=== PATIENT | female | born 1985 | race Caucasian/White ===

== ENCOUNTER 2017-09-16 16:46 | Emergency (ER) | payer BC ==
[2017-09-16 16:58] VITALS: BP 129/74
[2017-09-16] MEDS ORDERED: BSS OPTH.SOL* BTL OPHTHALMIC ONE (17:03)
[2017-09-16] MEDS ORDERED: Tetracaine 0.5% OPTH.SOL 4 ML* 1 DROP BTL LEFT EYE ONE (17:03)
[2017-09-16] MEDS ORDERED: Fluorescein Sod TOPICAL 0.6* 0.6 MG TEST OPHTHALMIC ONE (17:03)
--- NOTE | 2017-09-16 17:06 | UC ---
Eye Complaint HPI - HPI Summary HPI Summary: Patient was walking outside and had a peice of "something" blow into her eye. tried to flush it, but cannot open it now. - History of Current Complaint Chief Complaint: UCEye Stated Complaint: EYE COMPLAINT Time Seen by Provider: 09/16/17 17:03 Hx Obtained From: Patient Hx Last Menstrual Period: 09/14/17 ?: No Onset/Duration: Sudden Onset, Lasting Hours Timing: Constant Severity Initially: Severe Severity Currently: Severe Pain Intensity: 7 Location of Injury: Conjunctiva, Eye Lid (lower), Eye Lid (upper), Sclera Character: Foreign Body Sensation Associated Signs And Symptoms: Positive: Photophobia, Drainage (Clear) - Allergies/Home Medications Allergies/Adverse Reactions: Allergies Allergy/AdvReac Type Severity Reaction Status Date / Time Penicillins Allergy Intermediate Rash Verified 09/16/17 16:58 Sulfa (Sulfonamide Allergy Intermediate Rash Verified 09/16/17 16:58 Antibiotics) Home Medications: Home Medications Melatonin 1 mg PO DAILY WITH MEAL 09/16/17 [History Confirmed 09/16/17] PMH/Surg Hx/FS Hx/Imm Hx Previously Healthy: Yes - Surgical History Surgical History: None Surgery Procedure, Year, and Place: denies - Family History Known Family History: Positive: None Negative: Cardiac Disease, Hypertension - Social History Alcohol Use: Rare Substance Use Type: None Smoking Status (MU): Never Smoked Tobacco - Immunization History Most Recent Influenza Vaccination: 01/2015 Most Recent Tetanus Shot: 03/30/15 Most Recent Pneumonia Vaccination: unsure Review of Systems Constitutional: Negative Skin: Negative Eyes: Drainage, Eye Redness, Photophobia ENT: Negative Respiratory: Negative Cardiovascular: Negative Gastrointestinal: Negative Genitourinary: Negative Motor: Negative Neurovascular: Negative Musculoskeletal: Negative Neurological: Negative Psychological: Negative Is Patient Immunocompromised?: No All Other Systems Reviewed And Are Negative: Yes Physical Exam Triage Information Reviewed: Yes Appearance: Well-Appearing, Well-Nourished, Pain Distress Vital Signs: Initial Vital Signs Temp 99.3 F 09/16/17 16:52 Pulse 95 09/16/17 16:52 Resp 18 09/16/17 16:52 BP 129/74 09/16/17 16:52 Pulse Ox 100 09/16/17 16:52 Vital Signs Reviewed: Yes Eyes: Positive: Conjunctiva Inflamed, Discharge, Other: - multiple abrasions on cornea. no FB notes ENT Exam: Normal Dental Exam: Normal Neck exam: Normal Respiratory Exam: Normal Respiratory: Positive: Chest non-tender, Lungs clear, Normal breath sounds Cardiovascular Exam: Normal Cardiovascular: Positive: RRR, No Murmur, Pulses Normal Abdominal Exam: Normal Abdomen Description: Positive: Nontender, No Organomegaly, Soft Bowel Sounds: Positive: Present Musculoskeletal Exam: Normal Neurological Exam: Normal Psychological Exam: Normal Skin Exam: Normal Eye Complaint Course/Dx - Course Course Of Treatment: hx obtained, exam performed, meds reviewed, eye exam completed. - Differential Dx/Diagnosis Differential Diagnosis/HQI/PQRI: Conjunctivitis, Corneal Abrasion, Foreign Body , Penetrating Injury Provider Diagnoses: corneal abrasion. left eye pain Discharge - Sign-Out/Discharge Documenting (check all that apply): Patient Departure - Discharge Plan Condition: Stable Disposition: HOME Prescriptions: Erythromycin OPTH OINT* [Erythromycin 0.5% OPTH OINT*] 1 applic LEFT EYE TID #1 tube Referrals: Adrienne Khalil MD [Primary Care Provider] - Additional Instructions: 1. wear sun glasses to prevent irritation from the light 2. Use the medication three times a day for 3-5 days 3. If not improving follow up. - Billing Disposition and Condition Condition: STABLE Disposition: Home
== END 2017-09-16 17:30 | disposition home or self-care (01) ==
LOC: UCEAST 16:46
DX: S05.02XA Injury of conjunctiva and corneal abrasion without foreign body, left eye, initial encounter (principal); H57.12 Ocular pain, left eye; Z88.0 Allergy status to penicillin; Z88.2 Allergy status to sulfonamides; X58.XXXA Exposure to other specified factors, initial encounter; Y92.9 Unspecified place or not applicable
CPT/HCPCS: 99212; A9270-GY; G0463

== ENCOUNTER 2019-12-22 20:04 | Inpatient (IN) ==
[2019-12-22 21:05] LABS: ABS Lymphocytes 2.5 10^3/ul (1.0-4.8); ABS Monocytes 0.7 10^3/ul (0-0.8); ABS Neutrophils 9.3 10^3/ul (1.5-7.7); Eosinophil % 0.2 %; Hematocrit 32 % (35-47); Lymphocyte % 19.9 %; Mean Corpuscular HGB Conc 35 g/dL (31-36); Mean Corpuscular Hemoglobin 28 pg (27-31); Mean Corpuscular Volume 82 fL (80-97); Mean Platelet Volume 9.9 fL (7.4-10.4); Platelet Count 190 10^3/uL (150-450); Red Blood Count 3.87 10^6 /uL (3.70-4.87); Red Cell Distribution Width 14 % (10-15); White Blood Count 12.5 10^3/uL (3.5-10.8)
[2019-12-22 21:24] LABS: Urine Benzodiazepine Screen None Detected (None Detect); Urine Cannabinoids Screen None Detected (None Detect); Urine Opiates Screen None Detected (None Detect)
[2019-12-22] MEDS ORDERED: Dibucaine 1% OINT 28.35 GM TUBE PR PRN (21:34)
[2019-12-22] MEDS ORDERED: Witch Hazel PAD JAR TOPICAL PRN (21:34)
[2019-12-22] MEDS ORDERED: Glycerin ADULT 2.4 gm SUPP PR PRN (21:34)
[2019-12-22] MEDS ORDERED: Lactated Ringers 1000 ml BAG 1,000 ML IV ONE (21:52)
[2019-12-22] MEDS ORDERED: Buffered Lidocaine 1% SYRIN 1 ml INTRADERM ONE (21:52)
[2019-12-22] MEDS ORDERED: Lactated Ringers 1000 ml BAG 1,000 ML IV SCH ×2 (22:00)
[2019-12-22] MEDS ORDERED: Oxytocin in LR 20 UNITS/1,000 ML BAG IVPB SCH (22:00)
[2019-12-22] MEDS ORDERED: Oxytocin 10 UNITS/ML 1 ML VIAL IM ONE (23:00)
[2019-12-22] MEDS ORDERED: Oxytocin 10 UNITS/ML 1 ML VIAL ONE (23:06)
[2019-12-22] MEDS ORDERED: Lidocaine 1% VIAL 10 MG/ML VIAL ONE (23:16)
[2019-12-23] MEDS ORDERED: Ammonia Inhalant 1 EA AMP ONE (00:12)
[2019-12-23 07:18] LABS: ABS Monocytes 0.7 10^3/ul (0-0.8); ABS Neutrophils 10.5 10^3/ul (1.5-7.7); Eosinophil % 0.2 %; Hematocrit 28 % (35-47); Hemoglobin 9.3 g/dL (12.0-16.0); Lymphocyte % 15.2 %; Mean Corpuscular HGB Conc 33 g/dL (31-36); Mean Corpuscular Hemoglobin 27 pg (27-31); Mean Corpuscular Volume 82 fL (80-97); Mean Platelet Volume 9.7 fL (7.4-10.4); Platelet Count 155 10^3/uL (150-450); Red Blood Count 3.39 10^6 /uL (3.70-4.87); Red Cell Distribution Width 13 % (10-15); White Blood Count 13.3 10^3/uL (3.5-10.8)
[2019-12-24 08:25] VITALS: BP 121/73
== END 2019-12-24 10:50 | disposition home or self-care (01) | DRG 807 ==
LOC: MCHOBOUT 20:04 → MCHOB 20:22
PROVIDERS: ADMIT Advanced Practice Midwife; ATTEND Advanced Practice Midwife